=== PATIENT | male | born 1955 | race African-American/Black ===

== ENCOUNTER 2020-10-01 12:23 | Emergency (ER) | payer MEDICAID ==
[~2020-10-01] VITALS: Ht 180.3 cm; Wt 85.0 kg
[2020-10-01 12:47] VITALS: BP 159/81
[2020-10-01] MEDS ORDERED: ACETAMINOPHEN 325MG TABLET PO ONE (13:15)
[2020-10-01] MEDS ORDERED: TETANUS, DIPHTHERIA, PERTUSSIS VAC/PF 0.5ML (>7YR OLD) IM ONE (13:30)
[2020-10-01] MEDS ORDERED: LIDOCAINE HCL/PF 1% 10 MG/ML 5ML VIAL IJ ONE (13:30)
[2020-10-01] MEDS ORDERED: IBUPROFEN 600MG TABLET PO ONE (13:30)
[2020-10-01] MEDS ORDERED: BACITRACIN ZINC OINT UDPKT TOP ONE (13:30)
[2020-10-01] MEDS ORDERED: CLINDAMYCIN HCL 150MG CAPSULE PO ONE (13:45)
== END 2020-10-01 16:30 | disposition home or self-care (01) ==
LOC: ER 12:23
DX: L03.313 Cellulitis of chest wall (principal)
CPT/HCPCS: 87070; 87077; 87186; 87205; 90471; 90715; 99284; A4217; Z7610

== ENCOUNTER 2020-10-03 13:55 | Emergency (ER) | payer MEDICAID ==
[~2020-10-03] VITALS: Ht 180.3 cm; Wt 91.0 kg
[2020-10-03 14:09] VITALS: BP 130/80
[2020-10-03] MEDS ORDERED: BACITRACIN ZINC OINT UDPKT TOP ONE (14:45)
== END 2020-10-03 16:00 | disposition home or self-care (01) ==
LOC: ER 13:55
DX: Z48.00 Encounter for change or removal of nonsurgical wound dressing (principal); N61.1 Abscess of the breast and nipple
CPT/HCPCS: 99283

== ENCOUNTER 2020-10-16 15:16 | Emergency (ER) | payer MEDICAID, MEDICARE ==
[~2020-10-16] VITALS: Ht 180.3 cm; Wt 87.5 kg
[2020-10-16 15:56] VITALS: BP 130/77
== END 2020-10-16 16:02 | disposition home or self-care (01) ==
LOC: ER 15:16
DX: Z48.00 Encounter for change or removal of nonsurgical wound dressing (principal); N61.1 Abscess of the breast and nipple
CPT/HCPCS: 99281